=== PATIENT | female | born 1980 | race Caucasian/White ===

== ENCOUNTER 2018-03-14 17:40 | Emergency (ER) | payer MEDICAID ==
[2018-03-14 18:08] VITALS: BP 128/84; PULSE 102; RESP 20; TEMP 98.2; O2SAT 100
--- NOTE | 2018-03-14 18:20 | ED PDOC ---
HPI: Female Pain Time Seen by Provider: 03/14/18 18:14 Chief Complaint (Nursing): Female Genitourinary History Per: Patient Onset/Duration Of Symptoms: Days (1) Current Symptoms Are (Timing): Still Present Severity: Moderate Quality Of Discomfort: Cramping Additional Complaint(s): Vaginal bleeding assoc with lower abd cramping x 1 day. Approx 7 weeks . Abnormal Vaginal Bleeding: Yes Past Medical History Vital Signs: Last Vital Signs Temp 98.2 F 03/14/18 18:05 Pulse 102 H 03/14/18 18:05 Resp 20 03/14/18 18:05 BP 128/84 03/14/18 18:05 Pulse Ox 100 03/14/18 18:05 - Medical History PMH: No Chronic Diseases - Family History Family History: States: Unknown Family Hx - Allergies Allergies/Adverse Reactions: Allergies Allergy/AdvReac Type Severity Reaction Status Date / Time seafood Allergy RASH Uncoded 03/14/18 18:05 Review of Systems Constitutional: Negative for: Fever Gastrointestinal: Positive for: Abdominal Pain Genitourinary Female: Positive for: Vaginal Bleeding Musculoskeletal: Negative for: Back Pain Physical Exam - Physical Exam Appears: Positive for: Non-toxic, No Acute Distress Skin: Positive for: Normal Color, Warm, DRY Gastrointestinal/Abdominal: Positive for: Bowel Sounds, Soft. Negative for: Tenderness Pelvic Exam: Positive for: External Exam Normal, Blood (mod). Negative for: Mass, Tender Adnexa - Laboratory Results Result Diagrams: 03/14/18 19:11 03/14/18 19:11 - ECG O2 Sat by Pulse Oximetry: 100 Disposition - Clinical Impression Clinical Impression: Threatened - Patient ED Disposition Is Patient to be Admitted: No Counseled Patient/Family Regarding: Studies Performed, Diagnosis, Need For Followup - Disposition Referrals: [facility] [Outside] Disposition: Routine/Home Disposition Time: 20:15 Condition: FAIR Instructions: Threatened Miscarriage Forms: [employer] (Brazilian)
[2018-03-14 19:20] LABS: BASO % 0.2 % (0.0-2.0); EOS # 0.1 K/uL (0.0-0.7); EOS % 0.7 % (0.0-4.0); HEMOGLOBIN 11.1 g/dL (12.0-16.0); LYMPH # 2.2 K/uL (1.0-4.3); LYMPH % 29.4 % (20.0-40.0); MEAN CELL VOLUME 68.6 fl (81.0-99.0); MEAN CORPUSCULAR HEMOGLOBIN 22.2 pg (27.0-31.0); MEAN CORPUSCULAR HGB CONC 32.3 g/dL (33.0-37.0); MEAN PLATELET VOLUME 7.4 fl (7.2-11.7); MONO # 0.5 K/uL (0.0-0.8); MONO % 6.8 % (0.0-10.0); NEUT # 4.7 K/uL (1.8-7.0); NEUT % 62.9 % (50.0-75.0); NRBC % 0.1 % (0.0-0.0); RBC 5.03 Mil/uL (3.80-5.20); RED CELL DISTRIBUTION WIDTH 17.7 % (11.5-14.5); WHITE BLOOD COUNT 7.5 K/uL (4.8-10.8)
[2018-03-14 19:31] LABS: ALB/GLOB RATIO 1.2 (1.0-2.1); ALBUMIN 3.9 g/dL (3.5-5.0); ALT/SGPT 22 U/L (9-52); AST/SGOT 20 U/L (14-36); BLOOD UREA NITROGEN 9 mg/dl (7-17); CALCIUM 8.9 mg/dL (8.4-10.2); GFR AFRICAN-AMERICAN > 60; GFR NON-AFRICAN AMERICAN > 60
--- NOTE | 2018-03-14 20:42 | US ---
EXAM: US , Transvaginal EXAM DATE/TIME: 03/14/2018 6:17 PM CLINICAL HISTORY: 37 years old, female; Pain; complicated by abdominal or pelvic pain; Lower; First trimester; Gestational age or lmp: 01/27/2018; ; Additional info: Pain and bleeding for one day R/O ectopic TECHNIQUE: Real-time transvaginal obstetrical ultrasound of the maternal pelvis and a first trimester with image documentation. Transvaginal imaging was used for better evaluation of the fetus and adnexa. COMPARISON: There are no prior studies for comparison. FINDINGS: Gestation: There is a single living intrauterine gestation. There is an embryonic heart rate of 129 beats per minute. Gestational sac has mean diameter of 20.3 mm.[place] rump length measures 7.8 mm.A yolk sac is present, internal diameter measures 3 mm Uterus: Uterus measures approximately 9 x 5 x 7 cm. Cervix measures approximately 4 cm in length. There are nabothian cysts. Ovaries: Right ovary measures approximate 4.2 x 2.5 x 2.1 cm. Left ovary measures approximately 3 x 2.9 x 2.7 cm. There is expected blood flow on Doppler imaging. There is a dominant follicle the left ovary . Free fluid: There is free fluid in the cul-de-sac. IMPRESSION: 6 week 5 day single living intrauterine gestation, estimated date of delivery 11/02/18
== END 2018-03-14 20:48 | disposition home or self-care (01) ==
LOC: H.ER 17:40
DX: O20.0 Threatened abortion (principal); O26.891 Other specified pregnancy related conditions, first trimester; Z3A.01 Less than 8 weeks gestation of pregnancy

== ENCOUNTER 2018-09-28 23:07 | Inpatient (IN) | payer MEDICAID ==
[2018-09-29 00:44] VITALS: BMI 32.2
[2018-09-29] MEDS ORDERED: Penicillin G 5 Million Unit Vial IVPB ONE (01:14)
[2018-09-29] MEDS: Lactated Ringer's 1,000 ML IV SCH ×3 (01:17→13:58)
[2018-09-29 01:58] LABS: BARBITURATES, UR NEGATIVE (NEGATIVE); BENZODIAZEPINES, UR NEGATIVE (NEGATIVE); OPIATES, UR NEGATIVE (NEGATIVE); PHENCYCLIDINE, UR NEGATIVE (NEGATIVE)
[2018-09-29 02:35] LABS: BASO % 0.2 % (0.0-2.0); EOS # 0.1 K/uL (0.0-0.7); EOS % 1.3 % (0.0-4.0); HEMOGLOBIN 11.2 g/dL (12.0-16.0); LYMPH # 2.2 K/uL (1.0-4.3); MEAN CELL VOLUME 70.1 fl (81.0-99.0); MEAN CORPUSCULAR HEMOGLOBIN 21.8 pg (27.0-31.0); MEAN CORPUSCULAR HGB CONC 31.1 g/dL (33.0-37.0); MEAN PLATELET VOLUME 8.7 fl (7.2-11.7); MONO # 0.6 K/uL (0.0-0.8); MONO % 7.5 % (0.0-10.0); NEUT # 5.5 K/uL (1.8-7.0); RBC 5.16 Mil/uL (3.80-5.20); RED CELL DISTRIBUTION WIDTH 19.7 % (11.5-14.5); WHITE BLOOD COUNT 8.5 K/uL (4.8-10.8)
[2018-09-29 06:34] VITALS: PULSE 90; O2SAT 99
[2018-09-29 09:19] LABS: SQUAMOUS EPITHIAL 1 /hpf (0-5); URINE BACTERIA RARE (<OCC); URINE BILIRUBIN NEGATIVE (NEGATIVE); URINE BLOOD NEGATIVE (NEGATIVE); URINE CLARITY CLEAR (Clear); URINE COLOR YELLOW (YELLOW); URINE GLUCOSE (UA) NEG (NEGATIVE); URINE LEUKOCYTE ESTERASE NEG Leu/uL (Negative); URINE PROTEIN NEGATIVE (NEGATIVE); URINE UROBILINOGEN 0.2-1.0 mg/dL (0.2-1.0)
[2018-09-29 09:40] LABS: ALB/GLOB RATIO 0.9 (1.0-2.1); ALBUMIN 3.1 g/dL (3.5-5.0); AST/SGOT 24 U/L (14-36); BLOOD UREA NITROGEN 14 mg/dl (7-17); CALCIUM 8.8 mg/dL (8.4-10.2); GFR NON-AFRICAN AMERICAN > 60; URIC ACID 5.6 mg/Dl (2.2-7.5)
[2018-09-29 09:41] LABS: ALT/SGPT 28 U/L (9-52)
[2018-09-29] MEDS ORDERED: Lactated Ringer's 1,000 ML IV ONE (10:38)
[2018-09-29] MEDS ORDERED: ceFAZolin IV 2 gm in Dextrose 2 GM/50 ML BAG IVPB ONE (10:38)
[2018-09-29] MEDS ORDERED: Betamethasone Soluspan 30 mg/5mL Inj Susp IM ONE (10:39)
[2018-09-29] MEDS ORDERED: Oxytocin 30 UNIT 30 UNITS/500 ML BAG IV ONE (10:40)
[2018-09-29] MEDS ORDERED: OXYTOCIN/0.9 % NS 20 UNIT/1,000 ML BAG IV SCH (10:45)
[2018-09-29] MEDS ORDERED: Phenylephrine 10 mg/ml Inj ONE (13:49)
[2018-09-29] MEDS ORDERED: Morphine 1 mg/ml preservative-free Inj(Duramorph) ONE (13:51)
[2018-09-29] MEDS ORDERED: DiphenhydrAMINE 50 mg/ml Inj IVP PRN ×2 (14:13→20:39)
[2018-09-29] MEDS ORDERED: Oxycodone/Acetaminophen 5/325 mg Tab PO PRN ×4 (14:13→20:39)
[2018-09-29] MEDS ORDERED: Midazolam 2 MG/2 ML VIAL ONE ×2 (14:54→15:19)
[2018-09-29] MEDS ORDERED: Ketamine 50 mg/ml Inj (10 ml) ONE (14:55)
[2018-09-29] MEDS ORDERED: Propofol 10 mg/ml Inj (20 ML) ONE (15:16)
[2018-09-29] MEDS ORDERED: Esmolol 100 mg/10ml Inj IV ONE (15:20)
[2018-09-29] MEDS ORDERED: Dexamethasone 4 mg/1 ml ONE (15:24)
[2018-09-29] MEDS ORDERED: Simethicone 80 mg Chewtab PO SCH (16:00)
--- NOTE | 2018-09-29 16:26 | OBDS ---
DELIVERY PERSONNEL Delivery Doctor: Mich Woods DO Scrub Nurse: Gaby Chang Finished Cloth Checker: Stephanie Bermeo RN Anesthesiologist: Opal Goodrich MD MATERNAL INFORMATION Delivery Anesthesia: Spinal Estimated Blood Loss (ml): 800 Placenta Cultured: No Maternal Complications: Premature Rupture of Membranes Provider Comments: Pre Op Dx : IUP at 35w PROM; Previous C/S x 1 deceleind Post Op Dx same/ pelvic adhesions Procedure: Repeat LTCS via Previous Pfannenstiel incision Surgeon: Dr Woods Assmaria victoria Garcia Asst: Dr Minaya Anesth: Dr Goodrich Anest: spinal FIndings: -live male infant delivered from [facility] presentation -clear AF - 8,9 -Pelvic adhesions - Ovaries and tubes WNL -Placenta delivered intact manually -all equipment, sponges and needles accounted for - EBL 800cc LABOR SUMMARY EDC: 11/03/2018 00:00 No. Babies in Womb: 1 Attempted: No Labor Anesthesia: None LABOR INFORMATION Reason for Induction: Not Applicable Oxytocin: N/A Group B Beta Strep: Not Done Antibiotics # of Doses: 4 Steroids Given: Partial Course Reason Steroids Not Administered: Indication MEMBRANES Membranes Rupture Method: Spontaneous Rupture of Membranes: 09/28/2018 21:00 Length of Rupture (hrs): 18.27 Amniotic Fluid Color: Clear Amniotic Fluid Amount: Moderate Amniotic Fluid Odor: Normal STAGES OF LABOR Stage 3 hrs: 0 Stage 3 min: 1 CSECTION DELIVERY Primary Indication: Repeat Elective CSection Urgency: Elective CSection Incidence: Repeat Labor: No Labor Elective: Elective CSection Incision: Lower Uterine Transverse Uterine Closure: Double-layer closure BABY A INFORMATION Infant Delivery Date/Time: 09/29/2018 15:16 Method of Delivery: Born in Route : No : N/A Forceps: N/A Vacuum Extraction: N/A Shoulder Dystocia : No SHOULDER DYSTOCIA BABY A Infant Delivery Date/Time: 09/29/2018 15:16 PRESENTATION/POSITION BABY A Presentation: Cephalic Cephalic Presentation: Vertex Breech Presentation: N/A PLACENTA INFORMATION BABY A Placenta Delivery Time : 09/29/2018 15:17 Placenta Method of Delivery: Manual Removal Placenta Status: Delivered SCORES BABY A Heart Rate 1 min: >100 bpm Resp Effort 1 min: Good Cry Reflex Irritability 1 min: Cough or Sneeze or Pulls Away Muscle Tone 1 min: Active Motion Color 1 min: Blue/Pale SCORE 1 MIN: 8 Heart Rate 5 min: >100 bpm Resp Effort 5 min: Good Cry Reflex Irritability 5 min: Cough or Sneeze or Pulls Away Muscle Tone 5 min: Active Motion Color 5 min: Body [place], Extremities Blue SCORE 5 MIN: 9 INFORMATION BABY A Gestational Age at Delivery: 35.0 Gestational Status: Outcome : Liveborn Infant Condition : Stable Infant Sex: Male WEIGHT/LENGTH BABY A Infant Birthweight (gms): 1640 Infant Weight (lb): 3 Infant Weight (oz): 10 CORD INFORMATION BABY A No. Cord Vessels: 3 Nuchal Cord : N/A Cord Blood Taken: Yes SCORES BABY B Heart Rate 1 min: >100 bpm Resp Effort 1 min: Good Cry Reflex Irritability 1 min: Cough or Sneeze or Pulls Away Muscle Tone 1 min: Active Motion Color 1 min: Blue/Pale SCORE 1 MIN: 8 Heart Rate 5 min: >100 bpm Resp Effort 5 min: Good Cry Reflex Irritability 5 min: Cough or Sneeze or Pulls Away Muscle Tone 5 min: Active Motion Color 5 min: Body [place], Extremities Blue SCORE 5 MIN: 9
[2018-09-29] MEDS: Simethicone 80 mg Chewtab PO SCH (22:37)
[2018-09-30] MEDS ORDERED: Lactated Ringer's 1,000 ML IV SCH (00:45)
[2018-09-30] MEDS: Simethicone 80 mg Chewtab PO SCH ×4 (04:18→21:48)
[2018-09-30 08:05] LABS: HEMOGLOBIN 9.8 g/dL (12.0-16.0); MEAN CELL VOLUME 69.6 fl (81.0-99.0); MEAN CORPUSCULAR HEMOGLOBIN 21.9 pg (27.0-31.0); MEAN CORPUSCULAR HGB CONC 31.4 g/dL (33.0-37.0); RBC 4.47 Mil/uL (3.80-5.20); RED CELL DISTRIBUTION WIDTH 20.1 % (11.5-14.5); WHITE BLOOD COUNT 12.5 K/uL (4.8-10.8)
[2018-09-30] MEDS ORDERED: Influenza Vaccine 60 mcg/0.5 mL SYR (4YR UP) IM ONE (08:18)
[2018-09-30] MEDS ORDERED: Multivitamin With Minerals Tab PO SCH (09:00)
[2018-09-30] MEDS: Multivitamin With Minerals Tab PO SCH (11:12)
[2018-10-01] MEDS: Simethicone 80 mg Chewtab PO SCH ×4 (04:53→21:24)
[2018-10-01] MEDS ORDERED: Oxycodone/Acetaminophen 5/325 mg Tab PO PRN (08:37)
[2018-10-01] MEDS: Multivitamin With Minerals Tab PO SCH (08:43)
--- NOTE | 2018-10-01 09:29 | OBADHP ---
Datetime: 09/29/2018 10:48 Presentation-Admit: Vertex FHR - Baseline A Provider: 150 Membranes, Provider: Ruptured Contraction Comments Provider: None Gestation - Est Wks by US: 35.0 Vital Signs Provider: Reviewed; Within Normal Limits NICHD Variability Prov Fetus A: Moderate 6-25bpm NICHD Accel Fetus A IP Provider: [id number] FHR Category Provider Fetus A: Category I NICHD Decel Fetus A IP Provider: None Dilatation, Provider: 0 Effacement, Provider: long Station, Provider: high Datetime: 09/29/2018 00:45 Admit Comment, IP Provider: 38 y/o female at 35.0 wk GA presents to [facility] w/ c/o vaginal flui d loss and vaginal bleed that started yesterday at 9PM. She endorses back pain, but no abdominal pain . She endorses movement. She was last sexually active yesterday. Patient does not have any of h er medical records. She denies CP, SOB, headache, visual changes, urinary symptoms, numbness/tingling . Of note, she has hx of pre-eclampsia w/ first . OB: [facility]: first : induced NVD due to elevated BP at 34 weeks GA. second : 2005 @ 33 wk GA due to breech presentation. Third 2008: at 39 weeks. Current pregnanc y: Has been receiving progesterone weekly for 3 months. Pmhx:denies HomeRx: vitamins Famhx: mom w/ HTN, dad w/ DM Socialhx: denies toxic habits Surghx: 1 2005 Allergies: seafood, NKDA ROS negative except per HPI Physical Exam: Gen: appears comfortable; no acute distress Heart: S1 S2 present, RRR Lungs: normal breathing effort, clear to auscultation bilaterally Abd: gravid, soft, non-tender Speculum exam (by Dr. Ace): closed cervix, pooling of clear fluid in vaginal vault Exremities: no swelling/erythema/tenderness Assessment and Plan: 38 y/o female at 35.0 wk GA IUP w/ ROM Cervix is closed, [place] shows no contractions. NST reactive. Patient w/ hx of 2005 and in 2007 Does not have any medical records w/ her Admit patient to L_D FHR and [place] monitoring CBC, type and screen, Rapid HIV, RPR, HBsAg, Rubella IGG labs ordered GBS prophylaxis: Pen G 5MU IVx1 and Pen G 2.5 MU IV Q4 NPO 1L LR IV @125mL/hr Can have epidural; anesthesiology consulted Medical release forms completed; will attempt to obtain records in AM Case discussed w/ attending, Dr. Db Elizondo pgyi Pelvic Type - PN: Adequate Extremities - PN: Normal Abdomen - PN: Normal Back - PN: Not Done Breast - PN: Not Done Lungs - PN: Normal Heart - PN: Normal Thyroid - PN: Not Done Neurologic - PN: Not Done HEENT - PN: Not Done General - PN: Normal Pool Provider: Positive IP Hx Assessment: No Care IP Chief Complaint: Suspected ruptured membranes Genitourinary Exam: Normal DTRs - PN: Not Done EGA AdmitDate IP: 35.0 IP Adm Impression: , intrauterine ; Ruptured Membranes IP Admit Plan: Admit to unit Datetime: 09/29/2018 00:00 Amniotic Fluid Color, Provider: Clear Comments, ACOG Physical Exam: U/S at bedside shows fetus in cephalic position Vital Signs Provider Details: elevated BP
--- NOTE | 2018-10-01 09:32 | OBPPN ---
Datetime: 09/30/2018 06:30 PP Pain Prov: Within normal limits PP Nausea Prov: Denies PP Flatus Prov: Yes PP BM Prov: Yes PP Breasts Prov: Not Done PP Heart Prov: Normal PP Lungs Prov: Normal PP Abdomen/Uterus Prov: Normal PP Lochia Prov: Normal PP Vulva/Perineum Prov: Not Done PP CVA Tenderness Prov: Not Done PP Extremities Prov: Normal PP C/S Incision Prov: Normal PP Progress Prov: Normal PP Impression Prov: Normal progression PP Plan Prov: Continue present management PP Progress Note Prov: POD 1 S: 38 y/o female s/p on 09/29/2018. Patient seen and examined at bedside. Does no t have any complaints at this time. She endorses passing gas and stool. Lochia like menses. Toleratin g liquid diet. Denies difficulties . Physical Exam: GEN: sitting up in chair comfortably Cardio: S1S2 present, RRR Lungs: clear air entry sounds b/l, no wheezing Abdomen: BS+, tenderness to palpation. incision intact, no erythema/swelling/warmth. [place] josef is firm and at the level of the umbilicus. EXT: No edema, calves non-tender to palpation Assessment/Plan: 38 y/o s/pod#1 at on 09/29/2018 d/c pepper remove dressing 24 hrs post op follow up pp cbc Percocet 5/325mg, and Motrin 600mg prn for pain. Senokot for constipation Anticipated discharge is 10/02/2018 Emily Elizondo pgy1 Vital Signs Provider PP: Reviewed; Within Normal Limits
--- NOTE | 2018-10-01 17:42 | OBPPN ---
Datetime: 10/01/2018 11:01 PP Pain Prov: Within normal limits PP Nausea Prov: Denies PP Flatus Prov: Yes PP BM Prov: Yes PP Breasts Prov: Not Done PP Heart Prov: Normal PP Lungs Prov: Normal PP Abdomen/Uterus Prov: Normal PP Lochia Prov: Normal PP Vulva/Perineum Prov: Normal PP CVA Tenderness Prov: Normal PP Extremities Prov: Normal PP C/S Incision Prov: Normal PP Progress Prov: Normal PP Impression Prov: Normal progression PP Plan Prov: Continue present management PP Progress Note Prov: POD 1 S: 38 y/o female s/p on 09/29/2018. Patient seen and examined at bedside. Does no t have any complaints at this time. She endorses passing gas and stool, last BM this morning. Lochia like menses. Tolerating liquid diet. Denies difficulties . Physical Exam: GEN: sitting up in chair comfortably Cardio: S1S2 present, RRR Lungs: clear air entry sounds b/l, no wheezing Abdomen: BS+, tenderness to palpation. incision intact, no erythema/swelling/warmth. [place] josef is firm and at the level of the umbilicus. EXT: No edema, calves non-tender to palpation Assessment/Plan: 38 y/o s/pod#2 at on 09/29/2018 Follow up CBC: 9.8/31.1 Percocet 5/325mg, and Motrin 600mg prn for pain. Senokot for constipation Anticipated discharge is 10/02/2018 Carmella Bustos, pgy1. Attending Note: Patient was discussed with the resident and I agree with the above findings. IP PP Procedures: None Vital Signs Provider PP: Reviewed; Within Normal Limits
[2018-10-02] MEDS: Simethicone 80 mg Chewtab PO SCH ×3 (04:38→13:59)
--- NOTE | 2018-10-02 07:03 | OBPPN ---
Datetime: 10/02/2018 06:59 PP Pain Prov: Within normal limits PP Nausea Prov: Denies PP Flatus Prov: Yes PP BM Prov: Yes PP Abdomen/Uterus Prov: Normal PP Lochia Prov: Normal PP Extremities Prov: Normal PP C/S Incision Prov: Normal PP Progress Prov: Normal PP Impression Prov: Normal progression PP Plan Prov: Discharge PP Progress Note Prov: POD 3 s/p Repeat LTCS for PPROM atv 35 wks, declined Discharge home today Vital Signs Provider PP: Reviewed
--- NOTE | 2018-10-02 07:04 | OBDCSUM ---
Datetime: 10/02/2018 07:02 Discharged to, Provider: Home Follow up at, Provider: Clinic Disch Instr Activity: Normal activity; May Shower Disch Instr Diet: Regular Discharge Instructions, Provider: Routine instructions given Discharge Diagnosis, Provider: Delivery Discharge Time: 10/02/2018 07:02 Follow up in weeks, Provider: 1 week Disch Activity Restrictions: No exercising; No lifting; No driving; No sexual activity; Nothing in v agina - [place], tampons, douche
[2018-10-02] MEDS: Multivitamin With Minerals Tab PO SCH (08:30)
[2018-10-02 18:44] VITALS: BP 133/87; RESP 18; TEMP 98.7
--- NOTE | 2018-10-03 07:02 | OP ---
PROCEDURE DATE: 09/29/2018 PREOPERATIVE DIAGNOSES: Intrauterine at 35 weeks' gestation, premature rupture of membranes, previous section x1, declining vaginal after section. POSTOPERATIVE DIAGNOSES: Intrauterine at 35 weeks' gestation, premature rupture of membranes, previous section x1, declining vaginal after section and pelvic adhesions. PROCEDURE: Repeat low-transverse section via previous Pfannenstiel incision. SURGEON: Niranjan Woods DO DIRECTOR OF RETAIL ANALYTICS: Denis Garcia MD (Dr. eDnis Garcia is a board certified DIETETICS TEACHER, who was available to assist on this case. His presence was vital and necessary for the procedure. He was present from the time of skin incision to the delivery of the infant to the skin closure). ANESTHESIOLOGIST: Rodney Goodrich MD ANESTHESIA: Spinal. FINDINGS: Live male infant delivered from cephalic presentation. Clear amniotic fluid noted. scores were 8 and 9 given at 1 and 5 minutes respectively. Pelvic adhesions. Ovaries and tubes appeared to be within normal limits grossly. Placenta was delivered intact manually. All equipment, sponges and needles were accounted for. ESTIMATED BLOOD LOSS: 800 mL. DESCRIPTION OF PROCEDURE: The patient was brought to the operating room. She was given spinal anesthesia and then placed in supine position. Compression boots were placed on both lower extremities. Case catheter was placed and noted to be draining clear urine. She was then draped and prepped in the usual sterile manner. Once adequate anesthesia was obtained, an incision was made using a scalpel to the previous surgical scar. Incision was then taken down to the underlying fascia using electrocautery. The fascia was nicked in the midline and then extended bilaterally using electrocautery. The inferior aspect of the fascia was grasped using two Yaneli clamps, tented up, and the rectus muscle was both bluntly and sharply dissected. The same was done with the superior aspect of the fascia. In the midline superiorly, the rectus muscle was grasped using two Allis clamps, tented up. Careful dissection was done using a scalpel in the midline to separate the rectus muscle. Upon identifying the peritoneum, this was entered bluntly and pelvic adhesions were noted; these were carefully dissected superiorly and inferiorly. Also, pelvic adhesions were lysed upon entering the peritoneal cavity. This was done using two Jeni clamps, and visualizing all internal structures, this was then ligated and then cut. Hemostasis assured. Using two wet lap pads, these were placed in the paracolic gutters to mobilize the omentum and the bowel superiorly. The lower uterine segment was then inspected. Metzenbaum scissors were used to create a bladder flap, incising the peritoneum on the uterus and extended bilaterally. Bladder blade was then inserted behind the bladder flap. A low-transverse incision was made using a scalpel. Upon entering the uterus, clear fluid was noted and the incision was then extended bilaterally using bandage scissors. Infant's head was delivered as atraumatically as possible, was bulb suctioned nasopharyngeally, and remainder of the was then delivered. The infant was crying spontaneously. Cord was clamped and cut. The infant was handed to the sandblaster stone in attendance. Cord bloods were obtained. Placenta was delivered intact manually. Uterus was then exteriorized, cleared of debris and clots. Good contracture of the uterus was noted. Ovaries and tubes appeared to be within normal limits grossly. A 0 Vicryl suture was used to close the first layer of the uterus in interlocking fashion. Second layer of the uterus was closed using 0 Vicryl suture imbricating the first layer. Good hemostasis was assured. Posterior cul-de-sac was noted to be cleared of debris and clots. The uterus was placed back into the peritoneal cavity. The lower uterine segment was noted to have good hemostasis. A 0 Vicryl suture was used to approximate the peritoneum in running fashion. Rectus muscle was noted to have good hemostasis. A 0 Vicryl suture was used to approximate the rectus muscle x2. The fascial layer was then approximated using 0 Vicryl suture in a running fashion. Irrigation was performed. A 2-0 Vicryl suture was used to approximate the subcuticular layer. A 3-0 Vicryl suture was used to approximate the skin in a running fashion. Dermabond, Steri-Strips and pressure bandage were applied. Hemostasis was assured upon closure of each layer. Niranjan Woods DO
== END 2018-10-02 13:20 | disposition home or self-care (01) | DRG 651 ==
LOC: H.EROB2 23:07 → H.L&D 09-29 00:46 → H.OB/GYN 09-29 19:45
PROVIDERS: ADMIT Obstetrics & Gynecology; ATTEND Obstetrics & Gynecology
PROC: 10D00Z1 Extraction of Products of Conception, Low, Open Approach (ICD-10-PCS; principal; 2018-09-29)
PROC: 4A1HXCZ Monitoring of Products of Conception, Cardiac Rate, External Approach (ICD-10-PCS; 2018-09-29)
DX: O60.14X0 Preterm labor third trimester with preterm delivery third trimester, not applicable or unspecified (principal); O34.211 Maternal care for low transverse scar from previous cesarean delivery; N85.8 Other specified noninflammatory disorders of uterus; O42.913 Preterm premature rupture of membranes, unspecified as to length of time between rupture and onset of labor, third trimester; Z37.0 Single live birth; Z3A.35 35 weeks gestation of pregnancy; Z83.3 Family history of diabetes mellitus